=== PATIENT | male | born 1960 | race Caucasian/White ===

== ENCOUNTER 2020-08-28 17:19 | Emergency (ER) | payer MEDICAID ==
[~2020-08-28] VITALS: Ht 165.1 cm; Wt 73.0 kg
[2020-08-28] MEDS ORDERED: TETANUS, DIPHTHERIA, PERTUSSIS VAC/PF 0.5ML (>7YR OLD) IM ONE (18:30)
[2020-08-28] MEDS ORDERED: BACITRACIN ZINC OINT UDPKT TOP ONE (18:30)
[2020-08-28] MEDS ORDERED: LIDOCAINE HCL/PF 1% 10 MG/ML 5ML VIAL IJ ONE (18:30)
[2020-08-28] MEDS ORDERED: CEFAZOLIN 1000MG PREMIX 50 ML IV NR (23:00)
[2020-08-28] MEDS ORDERED: MORPHINE SULFATE 4 MG/ML CPJ (NOT FOR IM USE) IV ONE (23:30)
[2020-08-29 00:28] LABS: BASOPHILS % 0.5 % (0.0-2.0); HEMATOCRIT. 39.6 % (42.0-52.0); HEMOGLOBIN. 13.3 g/dL (14.0-18.0); LYMPHOCYTES % 17.9 % (20.0-50.0); MEAN CORPUSCULAR HEMOGLOBIN 32.7 pg (28.0-32.0); MEAN CORPUSCULAR VOLUME 97.1 fL (80.0-94.0); MEAN PLATELET VOLUME 8.2 fl (7.4-10.4); MONOCYTES % 8.6 % (2.0-8.0); PLATELET 220 x1000/uL (130-400); RED BLOOD CELL COUNT 4.07 mill/uL (4.7-6.1); RED CELL DISTRIBUTION WIDTH 13.3 % (11.6-14.6)
[2020-08-29 00:30] LABS: CHLORIDE 106 mEq/L (98-107)
[2020-08-29] MEDS ORDERED: TETANUS, DIPHTHERIA, PERTUSSIS VAC/PF 0.5ML (>7YR OLD) IM ONE (06:30)
[2020-08-29] MEDS ORDERED: CEPH500T PO (07:55)
[2020-08-29] MEDS ORDERED: TOPUD PO (07:55)
[2020-08-29] MEDS ORDERED: SULF1TAB48 PO (07:55)
[2020-08-29] MEDS ORDERED: IBUP-2028 PO (08:08)
[2020-08-29] MEDS ORDERED: T3 PO (08:08)
[2020-08-29 08:24] VITALS: BP 154/74
== END 2020-08-29 08:28 | disposition home or self-care (01) ==
LOC: ER 17:19
DX: S62.605B Fracture of unspecified phalanx of left ring finger, initial encounter for open fracture (principal); M13.811 Other specified arthritis, right shoulder; F17.210 Nicotine dependence, cigarettes, uncomplicated; Z71.6 Tobacco abuse counseling; W45.0XXA Nail entering through skin, initial encounter; Y93.89 Activity, other specified; Y92.89 Other specified places as the place of occurrence of the external cause; Y99.8 Other external cause status
CPT/HCPCS: 29130; 36415; 73120; 73130; 80053; 85025; 87040; 90471; 90715; 96365; 96375; 99285; 99406; A4217; J0690; J2270; J3490; Z7610

== ENCOUNTER 2020-11-14 13:58 | Emergency (ER) | payer SELFPAY ==
[~2020-11-14] VITALS: Ht 157.5 cm; Wt 66.0 kg
[~2020-11-14 13:58] MED LIST: CEPH500T PO; IBUP-2028 PO; SULF1TAB48 PO; T3 PO
[2020-11-14] MEDS ORDERED: NAPR-681 MT (14:45)
[2020-11-14] MEDS ORDERED: KETOROLAC 30MG/ML VIAL IM ONE (14:45)
[2020-11-14 15:05] VITALS: BP 126/88
== END 2020-11-14 15:12 | disposition home or self-care (01) ==
LOC: ER 13:58
DX: M25.511 Pain in right shoulder (principal)
CPT/HCPCS: 96372; 99283; J1885

== ENCOUNTER 2021-10-26 18:21 | Emergency (ER) | payer MEDICAID ==
[~2021-10-26] VITALS: Ht 170.2 cm; Wt 70.0 kg
[~2021-10-26 18:21] MED LIST changes: -IBUP-2028 PO; +NAPR-681 MT
[2021-10-26] MEDS ORDERED: TOPUD PO (21:14)
[2021-10-26] MEDS ORDERED: IBUP-2028 MT (21:14)
[2021-10-26] MEDS ORDERED: IBUPROFEN 400MG TABLET PO ONE (21:15)
[2021-10-26] MEDS ORDERED: ACETAMINOPHEN 325MG TABLET PO ONE (21:15)
[2021-10-26 21:31] VITALS: BP 180/100
== END 2021-10-26 21:40 | disposition home or self-care (01) ==
LOC: ER 18:21
DX: S00.83XA Contusion of other part of head, initial encounter (principal); S50.02XA Contusion of left elbow, initial encounter; Y04.0XXA Assault by unarmed brawl or fight, initial encounter; Y93.89 Activity, other specified; Y92.59 Other trade areas as the place of occurrence of the external cause
CPT/HCPCS: 70486; 73080; 99284